=== PATIENT | female | born 1990 | race Two or more races ===

== ENCOUNTER 2024-09-29 11:40 | Emergency (ER) | payer OTHER ==
[~2024-09-29] VITALS: Ht 160 cm; Wt 81.2 kg
[2024-09-29 12:35] LABS: Urine Bacteria None Seen /hpf (None Seen)
[2024-09-29] MEDS: SODIUM CHLORIDE 0.9% 1,000 ML IV ONE ×2 (12:35→17:18)
--- NOTE | 2024-09-29 12:38 | ED.PDOC ---
History of Present Illness HPI Comments 34 year old female presents to the ED with a chief complaint of dizziness onset today. Patient states she was doing house chores when she began experiencing with dizziness, blurry vision, headache. She is currently 11 weeks , P:2 A:2, has not seen OBGYN, has appointment 10/08/24. Denies chest pain, shortness of breath, nausea, vomiting, diarrhea, vaginal bleeding, dysuria, hematuria. No other symptoms or modifying factors present at this time. Chief Complaint: Dizziness Time Seen by MD: 12:25 Primary Care Provider: none Reviewed Notes: Medications, Allergies Allergies: Coded Allergies: Penicillins (Verified Allergy, Unknown, 09/29/24) Information Source: Patient Mode of Arrival: Ambulatory Severity: Moderate Timing: Hours Duration: Since onset Prehospital treatment: None Past Medical History PAST MEDICAL HISTORY: Thyroid Surgical History: Denies all surgeries SLEEVE SEWER History: No Pertinent SLEEVE SEWER History Family History Family History: Reviewed,noncontributory to illness, No family hx of Cancer, No family hx of DM, No family hx of Heart johana, No family hx of HTN, No family hx ofKidney johana, No family hx of Liver johana, No family hx of Lung johana, No family hx of Stroke Social History Smoker: Non-Smoker Alcohol: Denies ETOH Use Drugs: Denies Drug Use Lives In: Home Constitutional: denies: chills, diaphoresis, fatigue, fever, malaise, sweats, w eakness, others EENTM: reports: blurred vision; denies: double vision, ear bleeding, ear discharge, ear drainage, ear pain, ear ringing, eye pain, eye redness, hearing loss, mouth pain, mouth swelling, nasal discharge, nose bleeding, nose congestion, nose pain, photophobia, tearing, throat pain, throat swelling, voice changes, others Respiratory: denies: cough, hemoptysis, orthopnea, SOB at rest, shortness of breath, SOB with excertion, stridor, wheezing, others Cardiovascular: denies: chest pain, dizzy spells, diaphoresis, Dyspnea on exertion, edema, irregular heart beat, left arm pain, lightheadedness, palpitations, PND, syncope, others Gastrointestinal: denies: abdomen distended, abdominal pain, blood streaked bowels, constipated, diarrhea, dysphagia, difficulty swallowing, hematemesis, melena, nausea, poor appetite, poor fluid intake, rectal bleeding, rectal pain, vomiting, others Genitourinary: denies: abnormal vagina bleeding, burning, dyspareunia, dysuria, flank pain, frequency, hematuria, incontinence, pain, , vagina discharge, urgency, others Neurological: reports: dizziness, headache; denies: fainting, left sided numbness, left sided weakness, numbness, paresthesia, pre-existing deficit, right sided numbness, right sided weakness, seizure, speech problems, tingling, tremors, weakness, others Musculoskeletal: denies: back pain, gout, joint pain, joint swelling, muscle pain, muscle stiffness, neck pain, others Integumetry: denies: bruises, change in color, change in hair/nails, dryness, laceration, lesions, lumps, rash, wounds, others Allergic/Immunocompromised: denies: Difficulty Healing, Frequent Infections, Hives, Itching, others Hematologic/Lymphatic: denies: anemia, blood clots, easy bleeding, easy bruising, swollen glands, others Endocrine: denies: excessive hunger, excessive sweating, excessive thirst, excessive urination, flushing, intolerance to cold, intolerance to heat, unexplained weight gain, unexplained weight loss, others Psychiatric: denies: anxiety, bipolar disorder, depression, hopeless, panic disorder, schizophrenia, sleepless, suicidal, others All Other Systems: Reviewed and Negative Physical Exam General Appearance: No Apparent Distress, Normal HEENT: Normal ENT Inspection, Pharynx Normal, TMs Normal Neck: Full Range of Motion, Non-Tender, Normal, Normal Inspection Respiratory: Chest Non-Tender, Lungs Clear, No Accessory Muscle Use, No Respiratory Distress, Normal Breath Sounds Cardiovascular: No Edema, No JVD, No Murmur, No Gallop, Normal Peripheral Pulses, Regular Rate/Rhythm Breast Exam: Deferred Gastrointestinal: No Organomegaly, Non Tender, No Pulsatile Mass, Normal Bowel Sounds, Soft Genitalia: Deferred Pelvic: Deferred Rectal: Deferred Extremities: No calf tenderness, Normal capillary refill, Normal inspection, Normal range of motion, Non-tender, No pedal edema Musculoskeletal : Apperance: Normal Neurologic: Alert, technicians and trades workers II-XII nml as Tested, No Motor Deficits, Normal Affect, Normal Mood, No Sensory Deficits Cerebellar Function: Normal Reflexes: Normal Skin: Dry, Normal Color, Warm Lymphatic: No Adenopathy Was a procedure done? Was a procedure done?: No Differential Dx Considerations may include: Home , threatened miscarriage, urinary tract infection, electrolyte abnormalities, dehydration X-Ray, Labs, Meds, VS Vital Signs Date Time Temp Pulse Resp B/P (MAP) Pulse Ox O2 Delivery O2 Flow Rate FiO2 09/29/24 14:47 98.6 73 16 104/63 (77) 98 98.6 09/29/24 12:44 87 16 97 Room Air 09/29/24 12:44 98.6 87 16 121/69 (86) 97 98.6 09/29/24 12:17 84 09/29/24 12:07 97.9 85 17 109/59 (76) 98 97.9 Lab Test 09/29/24 12:48 09/29/24 12:04 09/29/24 11:34 Range/Units White Blood Count 10.4 4.4-10.8 10^3/uL Red Blood Count 4.69 4.0-5.20 10^6/uL Hemoglobin 14.6 12.2-16.2 g/dL Hematocrit 42.0 36.0-46.0 % Mean Corpuscular Volume 89.7 80.0-100.0 fL Mean Corpuscular Hemoglobin 31.1 28.0-32.0 pg Mean Corpuscular Hemoglobin Concent 34.7 32.0-36.0 g/dL Red Cell Distribution Width 13.5 11.8-14.3 % Platelet Count 180 140-450 10^3/uL Mean Platelet Volume 10.5 6.9-10.8 fL Neutrophils (%) (Auto) 77.7 37.0-80.0 % Lymphocytes (%) (Auto) 17.1 10.0-50.0 % Monocytes (%) (Auto) 4.1 0.0-12.0 % Eosinophils (%) (Auto) 0.8 0.0-7.0 % Basophils (%) (Auto) 0.3 0.0-2.0 % Neutrophils # (Auto) 8.1 1.6-8.6 10 ^3/uL Lymphocytes # (Auto) 1.8 0.4-5.4 10 ^3/uL Monocytes # (Auto) 0.4 0-1.3 10 ^3/uL Eosinophils # (Auto) 0.1 0-0.8 10 ^3/uL Basophils # (Auto) 0 0-0.2 10 ^3/uL Nucleated Red Blood Cells 0.1 % Sodium Level 136 136-145 mmol/L Potassium Level 3.9 3.5-5.1 mmol/L Chloride Level 102 98-107 mmol/L Carbon Dioxide Level 24 20-31 mmol/L Anion Gap 10 5-15 Blood Urea Nitrogen 6 L 9-23 mg/dL Creatinine 0.63 0.550-1.02 mg/dL Glomerular Filtration Rate Calc 119 >90 mL/min BUN/Creatinine Ratio 9.5 L 10.0-20.0 Serum Glucose 131 H 74-106 mg/dL Calcium Level 9.6 8.7-10.4 mg/dL Troponin I High Sensitivity < 3 L </=34 ng/L Beta HCG, Quantitative 929906.6 H 1.5-4.2 mIU/mL POC Glucose 110 H 70-106 mg/dl Urine Color Colorless Yellow Urine Clarity Clear Clear Urine pH 7.0 5.0-9.0 Urine Specific [place] 1.003 1.001-1.035 Urine Protein Negative Negative Urine Ketones Negative Negative Urine Blood Negative Negative /uL Urine Nitrite Negative Negative Urine Bilirubin Negative Negative Urine Urobilinogen Normal Negative mg/dL Urine Leukocyte Esterase Negative Negative /uL Urine RBC None seen 0 - 4 /hpf Urine Microscopic WBC 1 0-5 /HPF Urine Squamous Epithelial Cells Few <5 /hpf Urine Bacteria None seen None Seen /hpf Urine Glucose Normal Normal mg/dL Current Medications Medications (Trade) Dose Ordered Sig/Romero Route Start Time Stop Time Status Last Admin Sodium Chloride 1,000 ml @ 1,000 mls/hr Q1H ONCE IV 09/29/24 12:30 09/29/24 13:29 DC 09/29/24 12:35 Sodium Chloride 1,000 ml @ 1,000 mls/hr Q1H ONCE IV 09/29/24 16:00 09/29/24 16:59 DC 09/29/24 17:18 Time of 1ST Reevaluation: 12:55 Reevaluation 1ST: Unchanged Patient Education/Counseling: Diagnosis, Treatment, Prognosis Family Education/Counseling: No Family Present Additional Information The following tests were ordered, and results were reviewed by me: BMP, CBC, BETA HCG, UA, TROP, EKG I discussed treatment and results with medical personnel and: Patient Comprehensive systems review obtained and negative except for what is stated in the HPI. Departure 1 Departure Time of Disposition: 17:28 (Patient's workup is benign. She is feeling better. She had likely was dehydrated. We will discharge patient home with outpatient follow up) Impression: Primary Impression: Normal first confirmed, currently in first trimester Additional Impression: Dehydration Disposition: HOME / SELF CARE / HOMELESS Condition: Stable Additional Instructions: Your workup today was benign. Your ultrasound shows you are approximately 9 weeks and 5 days with a due date of April 29, 2025. It is important to stay well hydrated and well rested and follow up with your OBGYN as soon as possible. Discharged With: Self Critical Care Note Critical Care Time?: No Stability Stability form required: No I personally scribed for ARIELA MARC MD ([email or web address]) on 09/29/24 at 12:38. Electronically submitted by Earnestine Valenzuela ([email or web address]). I personally scribed for ARIELA MARC MD ([email or web address]) on 09/29/24 at 12:58. Electronically submitted by Earnestine Valenzuela ([email or web address]). ARIELA MARC MD Sep 29, 2024 12:38
[2024-09-29 12:56] LABS: Urine Blood Negative /uL (Negative); Urine Clarity Clear (Clear); Urine Color Colorless (Yellow); Urine Protein, UAD Negative (Negative); Urine Specific Gravity 1.003 (1.001-1.035); Urine Squamous Epithelial Cell FEW /hpf (<5); Urine Urobilinogen Normal (Negative); Urine WBC 1 /HPF (0-5)
[2024-09-29 13:12] LABS: Basophils # (auto) 0 10 ^3/uL (0-0.2); Basophils % (auto) 0.3 % (0.0-2.0); Eosinophils # (auto) 0.1 10 ^3/uL (0-0.8); Eosinophils % (auto) 0.8 % (0.0-7.0); Hemoglobin 14.6 g/dL (12.2-16.2); Lymphocytes # (auto) 1.8 10 ^3/uL (0.4-5.4); Lymphocytes % (auto) 17.1 % (10.0-50.0); Mean Corpuscular Hemoglobin 31.1 pg (28.0-32.0); Mean Corpuscular Hgb Conc. 34.7 g/dL (32.0-36.0); Mean Corpuscular Volume 89.7 fL (80.0-100.0); Monocytes # (auto) 0.4 10 ^3/uL (0-1.3); Monocytes % (auto) 4.1 % (0.0-12.0); Neutrophils # (auto) 8.1 10 ^3/uL (1.6-8.6); Neutrophils % (auto) 77.7 % (37.0-80.0); Nucleated Red Blood Cells % 0.1 %; Platelet Count (auto) 180 10^3/uL (140-450); Red Blood Cells 4.69 10^6/uL (4.0-5.20); Red Cell Distribution Width 13.5 % (11.8-14.3); White Blood Cell 10.4 10^3/uL (4.4-10.8)
[2024-09-29 13:25] LABS: Anion Gap 10 (5-15); Carbon Dioxide 24 mmol/L (20-31); Chloride 102 mmol/L (98-107); Potassium 3.9 mmol/L (3.5-5.1); Sodium 136 mmol/L (136-145)
[2024-09-29 13:26] LABS: Calcium 9.6 mg/dL (8.7-10.4)
[2024-09-29 13:31] LABS: BUN/Creatinine Ratio 9.5 (10.0-20.0)
[2024-09-29 13:33] LABS: Blood Urea Nitrogen 6 mg/dL (9-23); Glucose 131 mg/dL (74-106)
[2024-09-29 14:47] VITALS: BP 104/63; PULSE 73; RESP 16; TEMP 98.6; O2SAT 98
--- NOTE | 2024-09-29 17:09 | DVH ---
OB ULTRASOUND <14 WEEKS: HISTORY: abdominal pain, dizziness, weakness TECHNIQUE: Multiple real-time grayscale sonographic images of the pelvis with duplex Doppler color f low, spectral and M-mode analysis. TRANSDUCERS: Transabdominal FINDINGS: The uterus measures 12.5 x 7.5 x 10.2 The cervix not measured Right ovary not visual Left ovary not visualized IUP single live fetus at 9 weeks 5 days average ultrasound age based on mean crown-rump length of 3.0 5 cm and gestational sac size of 4 cm heart rate detected at 174 beats per minute. Yolk sac not visualized. Amniotic fluid adequate Lisette-gestational space: IMPRESSION: 1. IUP single live fetus 9 weeks 5 days AUA corresponding to an JUVENAL of 04/29/2025. 2. FHR: 174 beats per minute
--- NOTE | 2024-09-30 14:37 | ECG ---
[facility] Test Date: 2024-09-29 Test Time: 12:17:25 Pat Name: CHETAN HOGAN Department: ER Room: Gender: F Bath Tester: JP : 1990 Requested By: EMERGENCY EMERGENCY Order Number: [id number] Reading MD: Gerard Jacobs Measurements Intervals [place] Rate: 84 P: 69 MI: 124 QRS: 83 QRSD: 88 T: 49 QT: 371 QTc: 439 Interpretive Statements Sinus rhythm Baseline wander in lead(s) V6 Electronically Signed On 09-30-2024 22:13:36 PDT by Gerard Jacobs Please click the below link to view image of tracing.
== END 2024-09-29 18:17 | disposition home or self-care (01) ==
LOC: ER 11:40
DX: Z34.90 Encounter for supervision of normal pregnancy, unspecified, unspecified trimester (principal); E86.0 Dehydration; Z3A.11 11 weeks gestation of pregnancy; Z88.0 Allergy status to penicillin
CPT/HCPCS: 36415; 76801; 80048; 81001; 82947; 84484; 84702; 85025; 93005; 96360; 96361; 99284; J7030; 82962